=== PATIENT | male | born 1945 | race Caucasian/White ===

== ENCOUNTER → 2016-08-14 | Outpatient (CLI) | payer MEDICARE, OTHER ==
[~2016-08-14] MED LIST: 00186-0372-20 IH; ACULAR 10 ML10 ML OP; ALPARAZOLAM0.5 MG PO; AMBIEN 10MG10 MG PO; ANORO IH; ARICEPT10 MG PO; ASPIRIN 32325 MG/TAB PO; ATARAX50 MG PO; BENICAR 20MG TA20 MG PO; BROVANA15 MCG/2 M IH; BUSPAR10 MG PO; CATAPRES-T0.2 MG/24 TD; COREG 3.123.125 MG/T PO; COREG 6.256.25 MG/TA PO; COREG12.5 MG PO; COZAAR100 MG PO; CRESTOR20 MG PO; DEPAKENE250 MG PO; DEPAKOTE500 MG PO; DEXILANT60 MG PO; DULCOLAX PO; EES400 MG PO; EXELON6 MG PO; FISH OIL1 IU PO; GABAPENTIN100 M1 PO; GLUCOPHAGE XR500 M1 PO; GLUCOPHAGE500 MG/TAB PO; GLUMETZA500 MG; HCTZ 25MG TAB25 MG PO; HUMALOG 75/2100 U/ML SQ; HUMALOG100 U/ML SC; HUMULIN 70/30 PE3 ML SC; HYDROCODONE BIT PO; IMDUR 30MG30 MG/TAB PO; IMDUR 60MG60 MG/TAB PO; IMITREX50 MG PO; INSULIN NOVO100 U/ML SQ; KEFLEX750 MG PO; LANTUS100 U/ML; LEXAPRO 5MG5 MG PO; LEXAPRO20 MG PO; LIORESAL 1010 MG/TAB PO; LISINOPRIL10 MG PO; MORPHINE 1515 MG/TAB PO; MVI PO; NEURONTIN300 MG/CAP PO; NEURONTIN600 MG/TAB PO; NITROSTAT0.4 MG/TAB SL; NORVASC 5MG5 MG/TAB PO; NORVASC2.5 MG PO; NOVOLIN 70/30 710 ML SQ; NOVOLOG FLEX100 U/ML SC; NOVOLOG MIX 70/33 ML SC; NUCYNTA100 MG PO; OPANA ER40 MG PO; OXYGEN; PERCOCET 325 MG1 TA2 PO; PERCR 7.5 PO; PERIACTIN 4MG TA4 MG PO; PLAVIX 75MG TAB75 MG PO; PRAVACHOL 20MG20 MG PO; PRAVACHOL 40MG40 MG PO; PULMICORT0.25 MG/2 IH; REMERON 15M15 MG/TA1 PO; REMERON30 MG PO; RISPERDAL 0.5M0.5 MG PO; SAPHRIS5 MG SL; SEROQUEL 1100 MG/TAB PO; SEROQUEL 2525 MG/TAB PO; THEO-24 20200 MG/CAP PO; TOBRADEX EYE DRO5 ML OP; TOPROL XL 25MG25 MG PO; TRIAMCINOLONE AC0.13 TOP; TRICOR134 MG PO; VICODIN 5/5001 UDTAB PO; XANAX 0.5MG0.5 MG PO; XANAX2 MG PO; ZANTAC 300300 MG PO; ZANTAC PO; ZOFRAN 4MG T4 MG/TAB PO; ZOLOFT 100MG100 MG PO; ZOLOFT100 MG PO
== END ==
LOC: COL.RAD 07:00
DX: M50.31 Other cervical disc degeneration, high cervical region (principal); M51.04 Intervertebral disc disorders with myelopathy, thoracic region; M40.294 Other kyphosis, thoracic region; Z98.1 Arthrodesis status

== ENCOUNTER → 2016-09-23 | Outpatient (CLI) | payer MEDICARE, OTHER | LOC: BHSO 08:49 | DX: F33.41 Major depressive disorder, recurrent, in partial remission (principal) ==

== ENCOUNTER → 2016-11-03 | Outpatient (CLI) | payer MEDICARE, OTHER | LOC: MHCPAIN 07:54 | DX: G89.29 Other chronic pain (principal); M50.30 Other cervical disc degeneration, unspecified cervical region; M79.2 Neuralgia and neuritis, unspecified; E11.40 Type 2 diabetes mellitus with diabetic neuropathy, unspecified; Z87.891 Personal history of nicotine dependence | CPT/HCPCS: G0463 ==

== ENCOUNTER → 2016-11-20 | Outpatient (CLI) | payer MEDICARE, OTHER | LOC: MHCPAIN 09:02 | DX: M50.30 Other cervical disc degeneration, unspecified cervical region (principal) ==

== ENCOUNTER → 2016-11-25 | Outpatient (CLI) | payer MEDICARE, OTHER | LOC: MHCPAIN 09:52 | DX: G89.29 Other chronic pain (principal); M50.31 Other cervical disc degeneration, high cervical region; M79.2 Neuralgia and neuritis, unspecified | CPT/HCPCS: G0463 ==

== ENCOUNTER → 2016-12-04 | Outpatient (CLI) | payer MEDICARE, OTHER | LOC: MHCPAIN 08:02 | DX: M50.321 Other cervical disc degeneration at C4-C5 level (principal) ==

== ENCOUNTER → 2016-12-09 | Outpatient (CLI) | payer MEDICARE, OTHER | LOC: MHCPAIN 08:09 | DX: G89.29 Other chronic pain (principal); M50.90 Cervical disc disorder, unspecified, unspecified cervical region; M96.1 Postlaminectomy syndrome, not elsewhere classified | CPT/HCPCS: G0463 ==

== ENCOUNTER → 2016-12-15 | Outpatient (CLI) | payer MEDICARE, OTHER | LOC: BHSO 09:17 | DX: F33.1 Major depressive disorder, recurrent, moderate (principal) ==

== ENCOUNTER → 2016-12-18 | Outpatient (CLI) | payer MEDICARE, OTHER | LOC: MHCPAIN 07:38 | DX: T84.84XA Pain due to internal orthopedic prosthetic devices, implants and grafts, initial encounter (principal) ==

== ENCOUNTER → 2016-12-23 | Outpatient (CLI) | payer MEDICARE, OTHER | LOC: MHCPAIN 08:22 | DX: G89.29 Other chronic pain (principal); T84.84XA Pain due to internal orthopedic prosthetic devices, implants and grafts, initial encounter; M50.90 Cervical disc disorder, unspecified, unspecified cervical region | CPT/HCPCS: G0463 ==

== ENCOUNTER → 2017-01-08 | Outpatient (CLI) | payer MEDICARE, OTHER | LOC: MHCPAIN 07:40 | DX: M96.1 Postlaminectomy syndrome, not elsewhere classified (principal) | CPT/HCPCS: J2250; J3010 ==

== ENCOUNTER → 2017-01-15 | Outpatient (CLI) | payer MEDICARE, OTHER | LOC: MHCPAIN 07:34 | DX: M50.90 Cervical disc disorder, unspecified, unspecified cervical region (principal) | CPT/HCPCS: J3010 ==

== ENCOUNTER 2017-02-02 06:33 | Day surgery (SDC) | payer MEDICARE, OTHER ==
[2017-02-02] VITALS (13 sets, daily range): BP systolic 95–189; BP diastolic 67–115; PULSE 50–84; TEMP 99.1
[~2017-02-02] VITALS: Ht 177.8 cm; Wt 103.6 kg
[~2017-02-02 06:33] MED LIST changes: -LIORESAL 1010 MG/TAB PO; -MORPHINE 1515 MG/TAB PO; -NOVOLIN 70/30 710 ML SQ; -ZOLOFT 100MG100 MG PO
[2017-02-02 07:19] LABS: HEMATOCRIT 49.1 % (42.0-52.0); HEMOGLOBIN 15.8 g/dl (13.5-18.0); MEAN CELL VOLUME 91 fl (80.0-100.0); MEAN CORPUSCULAR HEMOGLOBIN 29 pg (27.0-31.0); MEAN CORPUSCULAR HGB CONC 32 g/dl (33.0-37.0); MEAN PLATELET VOLUME 10.7 fl (7.4-10.4); PLATELET COUNT 170 K/mm3 (130-400); RED BLOOD COUNT 5.41 M/mm3 (4.20-5.60); REDCELL DISTRIBUTION WIDTH-CV 14.6 % (11.5-14.5); WHITE BLOOD COUNT 7.3 K/mm3 (4.8-10.8)
[2017-02-02 07:37] LABS: CALCIUM 9.2 mg/dL (8.4-10.2); CREATININE, serum 1.1 mg/dL (0.66-1.25); POTASSIUM 4.4 mmol/L (3.4-5.0)
[2017-02-02] MEDS ORDERED: LIORESAL 1010 MG/TAB PO (07:50)
[2017-02-02 08:09] LABS: PROTHROMBIN TIME 11.4 SECONDS (9.7-12.8)
== END 2017-02-02 15:00 | disposition home or self-care (01) ==
LOC: COL.CAR 06:33
PROVIDERS: Internal Medicine Cardiovascular Disease
DX: I25.10 Atherosclerotic heart disease of native coronary artery without angina pectoris (principal); I10 Essential (primary) hypertension; E78.5 Hyperlipidemia, unspecified; E11.9 Type 2 diabetes mellitus without complications; J98.4 Other disorders of lung; Z79.01 Long term (current) use of anticoagulants; Z79.84 Long term (current) use of oral hypoglycemic drugs; Z87.891 Personal history of nicotine dependence; Z82.49 Family history of ischemic heart disease and other diseases of the circulatory system; Z79.4 Long term (current) use of insulin
CPT/HCPCS: C1760; C1769; C1887; J0153; J1644; J2250; J3010; Q9967

== ENCOUNTER → 2017-02-16 | Outpatient (CLI) | payer MEDICARE, OTHER ==
[~2017-02-16] MED LIST changes: +LIORESAL 1010 MG/TAB PO; +MORPHINE 1515 MG/TAB PO; +NOVOLIN 70/30 710 ML SQ; +ZOLOFT 100MG100 MG PO
== END ==
LOC: MHCPAIN 07:49
DX: G89.29 Other chronic pain (principal); M50.90 Cervical disc disorder, unspecified, unspecified cervical region; M54.12 Radiculopathy, cervical region; M96.1 Postlaminectomy syndrome, not elsewhere classified; Z87.891 Personal history of nicotine dependence
CPT/HCPCS: G0463

== ENCOUNTER 2017-03-09 07:17 | Emergency (ER) | payer MEDICARE, OTHER ==
[~2017-03-09] VITALS: Ht 175.3 cm; Wt 99.5 kg
[~2017-03-09 07:17] MED LIST changes: -MORPHINE 1515 MG/TAB PO; -NOVOLIN 70/30 710 ML SQ; -ZOLOFT 100MG100 MG PO
[2017-03-09 07:25] VITALS: TEMP 97.6
[2017-03-09 08:22] LABS: BASO # 0.1 (0.0-0.2); BASO % 0.7 % (0.0-2.0); EOS # 0.1 (0.0-0.7); EOS % 0.5 % (0-4.0); HEMATOCRIT 48.1 % (42.0-52.0); LYMPH % 19.8 % (20.0-51.0); MEAN CELL VOLUME 88 fl (80.0-100.0); MEAN CORPUSCULAR HEMOGLOBIN 29 pg (27.0-31.0); MEAN CORPUSCULAR HGB CONC 33 g/dl (33.0-37.0); MEAN PLATELET VOLUME 11.4 fl (7.4-10.4); MONO # 0.8 (0.1-0.6); MONO % 8.2 % (1.7-9.3); PLATELET COUNT 217 K/mm3 (130-400); RED BLOOD COUNT 5.48 M/mm3 (4.20-5.60); REDCELL DISTRIBUTION WIDTH-CV 14.5 % (11.5-14.5)
[2017-03-09 08:31] LABS: ADJUSTED CALCIUM 8.9 mg/dL (8.4-10.2); ALBUMIN 4.5 gm/dL (3.5-5.0); BILIRUBIN,TOTAL 1.2 mg/dL (0.0-1.0); C-REACTIVE PROTEIN 1.4 mg/dL (0.0-0.9); CALCIUM 9.3 mg/dL (8.4-10.2); CREATININE, serum 1.23 mg/dL (0.66-1.25); POTASSIUM 4.7 mmol/L (3.4-5.0); TOTAL PROTEIN 7.7 gm/dL (6.4-8.2)
[2017-03-09] MEDS ORDERED: NOVOLIN 70/30 710 ML SQ (08:53)
[2017-03-09] MEDS ORDERED: PLAVIX 75MG TAB75 MG PO (08:54)
[2017-03-09] MEDS ORDERED: MORPHINE 1515 MG/TAB PO (08:56)
[2017-03-09] MEDS ORDERED: DEPAKENE250 MG PO (09:00)
[2017-03-09] MEDS ORDERED: ARICEPT10 MG PO (09:00)
[2017-03-09] MEDS ORDERED: ZOLOFT 100MG100 MG PO (09:07)
[2017-03-09 12:38] LABS: PH 6 (5-8); SQUAMOUS EPITHELIAL None Seen /hpf; URINE APPEARANCE Clear; URINE BACTERIA None Seen /hpf; URINE BILIRUBIN Negative (NEGATIVE); URINE BLOOD Negative (NEGATIVE); URINE COLOR Yellow; URINE GLUCOSE Negative (NEGATIVE); URINE KETONE 1+ (NEGATIVE); URINE RBC 0-2 /hpf; URINE WBC 0-2 /hpf
[2017-03-09 13:21] VITALS: BP 135/72; PULSE 61
== END 2017-03-09 13:24 | disposition home or self-care (01) ==
LOC: COL.ER 07:17
PROVIDERS: Emergency Medicine
DX: R11.2 Nausea with vomiting, unspecified (principal); R19.7 Diarrhea, unspecified; I25.10 Atherosclerotic heart disease of native coronary artery without angina pectoris; E11.9 Type 2 diabetes mellitus without complications; R10.84 Generalized abdominal pain; Z91.81 History of falling; Z79.4 Long term (current) use of insulin; T38.3X6A Underdosing of insulin and oral hypoglycemic [antidiabetic] drugs, initial encounter; Z91.138 Patient's unintentional underdosing of medication regimen for other reason; Z79.02 Long term (current) use of antithrombotics/antiplatelets; R53.1 Weakness
CPT/HCPCS: J1170; J2405; J2550; J7030; J7040; Q9967

== ENCOUNTER → 2017-03-17 | Outpatient (CLI) | payer MEDICARE, OTHER ==
[~2017-03-17] MED LIST changes: +MORPHINE 1515 MG/TAB PO; +NOVOLIN 70/30 710 ML SQ; +ZOLOFT 100MG100 MG PO
== END ==
LOC: BHSO 09:25
DX: F33.1 Major depressive disorder, recurrent, moderate (principal)

== ENCOUNTER → 2017-03-31 | Outpatient (CLI) | payer MEDICARE, OTHER | LOC: MHCPAIN 07:51 | DX: M54.12 Radiculopathy, cervical region (principal); R51 Headache; Z87.891 Personal history of nicotine dependence; Z79.82 Long term (current) use of aspirin | CPT/HCPCS: G0463 ==